=== PATIENT | female | born 1950 | race Caucasian/White ===

== ENCOUNTER 2023-10-16 17:03 | Inpatient (IN) | payer MEDICARE ==
[~2023-10-16] VITALS: Ht 162.6 cm; Wt 71.8 kg
[2023-10-16] MEDS ORDERED: NOVAPLUS MEROPEN1 GM IV (17:29)
[2023-10-16] MEDS ORDERED: FESOTERODINE FUM8 MG PO (17:30)
[2023-10-16] MEDS ORDERED: Polyethylene Glycol 3350 Powder 17 GM PACKET PO PRN (17:30)
[2023-10-16] MEDS ORDERED: Meropenem 1 G in Water For Injection,Sterile 20 ML IV SCH (17:30)
[2023-10-16] MEDS ORDERED: Acetaminophen 500 MG TAB PO PRN (17:30)
[2023-10-16] MEDS ORDERED: D3-501250 MCG PO (17:31)
[2023-10-16] MEDS ORDERED: DAILY VALUE1 EACH PO (17:31)
[2023-10-16] MEDS ORDERED: CALCIUM + D3 E1 EACH PO (17:32)
[2023-10-16] MEDS ORDERED: XARELTO20 MG PO (17:32)
[2023-10-16] MEDS ORDERED: TOPCARE OMEPRAZ20 MG PO (17:32)
[2023-10-16] MEDS ORDERED: TRULANCE3 MG PO (17:33)
[2023-10-16] MEDS ORDERED: PREDNISOLONE5 M1 PO (17:33)
[2023-10-16] MEDS ORDERED: ONDANSETRON HYDR8 MG PO (17:34)
[2023-10-16] MEDS ORDERED: PROAIR HFA0.09 MG/AC IH (17:34)
[2023-10-16] MEDS ORDERED: XGEVA120 MG/1.7 SC (17:35)
[2023-10-16] MEDS ORDERED: TRIMPEX 100MG100 MG PO (17:35)
[2023-10-16] MEDS ORDERED: Albuterol 90 MCG/PUFF MDI IH PRN (17:45)
[2023-10-16 17:48] VITALS: BP 128/78
[2023-10-17 06:03] VITALS: BP 105/67
[2023-10-17 06:50] LABS: BASO # 0.02 K/mm3 (0.02-0.10); EOS # 0.06 K/mm3 (0.04-0.40); EOS % 2.6 % (1.0-5.0); HEMATOCRIT 32.9 % (37.0-47.0); HEMOGLOBIN 10.8 g/dL (12.5-16.0); LYMPH# 0.75 K/mm3 (1.50-4.00); MEAN CELL VOLUME 87 fl (78-100); MEAN CORPUSCULAR HEMOGLOBIN 29 pg (27-31); MEAN CORPUSCULAR HGB CONC 33 g/dL (33-37); MEAN PLATELET VOLUME 8.9 fl (7.4-10.4); MONO # 0.29 K/mm3 (0.20-0.80); NEU # 1.21 K/mm3 (1.40-6.50); PLATELET COUNT 187 K/mm3 (130-400); RED BLOOD COUNT 3.78 M/mm3 (4.10-5.30); RED CELL DISTRIBUTION WIDTH 15.2 % (11.5-14.5); WHITE BLOOD COUNT 2.3 K/mm3 (4.8-10.8)
[2023-10-17 07:04] LABS: ALBUMIN 3.7 g/dL (3.4-4.8)
[2023-10-17 07:06] LABS: CALCIUM 8.9 mg/dL (8.3-10.5)
[2023-10-17 07:07] LABS: TOTAL PROTEIN 5.8 g/dL (6.2-8.1)
[2023-10-17 07:09] LABS: TOTAL BILIRUBIN 0.3 mg/dL (0.2-1.2)
[2023-10-17] MEDS ORDERED: predniSONE 10 MG TAB PO SCH (09:00)
[2023-10-17] MEDS ORDERED: Calcium Carb/Vit D3 500 mg-200 Units TAB PO SCH (09:00)
[2023-10-17] MEDS ORDERED: Multivitamin TAB PO SCH (09:00)
[2023-10-17] MEDS ORDERED: PERCOCET 325 MG1 TA2 PO (10:25)
[2023-10-17] MEDS ORDERED: oxyCODONE/Acetaminophen 5-325 MG TAB PO PRN (10:30)
[2023-10-17] MEDS ORDERED: Docusate Sodium 100 MG CAP PO PRN (10:45)
[2023-10-17] MEDS ORDERED: Sennosides/Docusate 8.6-50 MG TAB PO PRN (10:45)
[2023-10-17 18:00] VITALS: BP 151/66
[2023-10-18 05:53] VITALS: BP 127/56
[2023-10-18 17:15] VITALS: BP 112/71
[2023-10-19 06:13] VITALS: BP 125/75
[2023-10-19 18:13] VITALS: BP 133/75
[2023-10-19] MEDS ORDERED: Docusate Sodium 100 MG CAP PO SCH (21:00)
[2023-10-20 05:41] VITALS: BP 13/76; BP 131/76
[2023-10-20 17:17] VITALS: BP 127/74
[2023-10-21 05:46] VITALS: BP 101/58
[2023-10-21 18:07] VITALS: BP 125/63
[2023-10-22 06:15] LABS: BASO # 0.01 K/mm3 (0.02-0.10); EOS # 0.03 K/mm3 (0.04-0.40); EOS % 1.1 % (1.0-5.0); HEMOGLOBIN 9.9 g/dL (12.5-16.0); LYMPH# 0.94 K/mm3 (1.50-4.00); MEAN CELL VOLUME 90 fl (78-100); MEAN CORPUSCULAR HEMOGLOBIN 29 pg (27-31); MEAN CORPUSCULAR HGB CONC 32 g/dL (33-37); MEAN PLATELET VOLUME 9.4 fl (7.4-10.4); MONO # 0.33 K/mm3 (0.20-0.80); NEU # 1.31 K/mm3 (1.40-6.50); PLATELET COUNT 174 K/mm3 (130-400); RED BLOOD COUNT 3.46 M/mm3 (4.10-5.30); WHITE BLOOD COUNT 2.6 K/mm3 (4.8-10.8)
[2023-10-22 06:28] VITALS: BP 120/70
[2023-10-22] MEDS ORDERED: Lidocaine 4% Topical Patch TP SCH (17:24)
[2023-10-22 17:51] VITALS: BP 128/80
[2023-10-23 05:17] VITALS: BP 125/72
[2023-10-23 18:00] VITALS: BP 137/71
[2023-10-24 06:00] VITALS: BP 103/67
[2023-10-24 17:19] VITALS: BP 133/69
[2023-10-25 06:09] VITALS: BP 118/78
[2023-10-25 16:34] VITALS: BP 125/81
[2023-10-26 05:52] VITALS: BP 118/62
[2023-10-26 07:33] LABS: BASO # 0.01 K/mm3 (0.02-0.10); EOS # 0.05 K/mm3 (0.04-0.40); HEMATOCRIT 31.4 % (37.0-47.0); HEMOGLOBIN 10.2 g/dL (12.5-16.0); LYMPH# 0.98 K/mm3 (1.50-4.00); MEAN CELL VOLUME 89 fl (78-100); MEAN CORPUSCULAR HEMOGLOBIN 29 pg (27-31); MEAN CORPUSCULAR HGB CONC 33 g/dL (33-37); MEAN PLATELET VOLUME 9.2 fl (7.4-10.4); MONO # 0.34 K/mm3 (0.20-0.80); NEU # 1.16 K/mm3 (1.40-6.50); PLATELET COUNT 187 K/mm3 (130-400); RED BLOOD COUNT 3.52 M/mm3 (4.10-5.30); RED CELL DISTRIBUTION WIDTH 14.7 % (11.5-14.5); WHITE BLOOD COUNT 2.6 K/mm3 (4.8-10.8)
[2023-10-26 07:37] LABS: ALBUMIN 3.6 g/dL (3.4-4.8)
[2023-10-26 07:38] LABS: CALCIUM 8.8 mg/dL (8.3-10.5)
[2023-10-26 07:39] LABS: TOTAL PROTEIN 5.7 g/dL (6.2-8.1)
[2023-10-26 07:41] LABS: TOTAL BILIRUBIN 0.3 mg/dL (0.2-1.2)
[2023-10-26 17:39] VITALS: BP 123/61
[2023-10-27 05:40] VITALS: BP 118/68
== END 2023-10-27 10:05 | disposition home or self-care (01) | DRG 947 ==
LOC: MED/SURG 17:03
PROVIDERS: ADMIT Family Medicine
DX: R53.81 Other malaise (principal); I26.99 Other pulmonary embolism without acute cor pulmonale; N39.0 Urinary tract infection, site not specified; C78.7 Secondary malignant neoplasm of liver and intrahepatic bile duct; C79.51 Secondary malignant neoplasm of bone; M81.0 Age-related osteoporosis without current pathological fracture; K21.9 Gastro-esophageal reflux disease without esophagitis; C50.919 Malignant neoplasm of unspecified site of unspecified female breast; B96.5 Pseudomonas (aeruginosa) (mallei) (pseudomallei) as the cause of diseases classified elsewhere; R09.02 Hypoxemia; Z79.52 Long term (current) use of systemic steroids; Z85.3 Personal history of malignant neoplasm of breast
CPT/HCPCS: J2185; J7512